=== PATIENT | male | born 1945 | race Caucasian/White ===

== ENCOUNTER 2016-09-02 11:43 | Outpatient (CLI) | payer MEDICARE, OTHER ==
[~2016-09-02 11:43] MED LIST: ASPI1TAB PO; ASPI81TA85 PO; BYST20TA2 PO; COLA100C PO; COUM1TAB17 PO; DOCU10CA PO; INFL10VL IV; LIPI80TA PO; META55.43 PO; METF500T4 PO; MIRA3350 PO; NS 1,000 ML IV SCH; ONETTES6 VI; PROT20TA11 PO; RAMAPRIL PO; diphenhydrAMINE 25 MG CAP PO SCH; inFLIXimab INJECTION 700 MG in NS 180 ML IV ONE
== END 2016-09-02 14:30 | disposition home or self-care (01) ==
LOC: M INFU 11:43
PROVIDERS: ATTEND Internal Medicine Gastroenterology
DX: K51.90 Ulcerative colitis, unspecified, without complications (principal)
CPT/HCPCS: 96413; 96415; J1745

== ENCOUNTER 2016-11-12 12:12 | Outpatient (CLI) | payer MEDICARE, OTHER | END 2016-11-12 14:45 | disposition home or self-care (01) | LOC: M INFU 12:12 | PROVIDERS: ATTEND Internal Medicine Gastroenterology | DX: K51.90 Ulcerative colitis, unspecified, without complications (principal); Z79.82 Long term (current) use of aspirin; Z79.899 Other long term (current) drug therapy; Z79.01 Long term (current) use of anticoagulants; Z88.2 Allergy status to sulfonamides | CPT/HCPCS: 96413; 96415; J1745 ==

== ENCOUNTER 2017-01-21 07:48 | Outpatient (CLI) | payer MEDICARE, OTHER ==
[~2017-01-21 07:48] MED LIST changes: -COLA100C PO; +COLA100C3 PO; -inFLIXimab INJECTION 700 MG in NS 180 ML IV ONE
[2017-01-21] MEDS ORDERED: inFLIXimab INJECTION 700 MG in NS 180 ML IV ONE (08:30)
== END 2017-01-21 10:30 | disposition home or self-care (01) ==
LOC: M INFU 07:48
PROVIDERS: ATTEND Internal Medicine Gastroenterology
DX: K51.90 Ulcerative colitis, unspecified, without complications (principal); Z87.891 Personal history of nicotine dependence; Z85.828 Personal history of other malignant neoplasm of skin; Z88.2 Allergy status to sulfonamides; Z79.82 Long term (current) use of aspirin; Z79.84 Long term (current) use of oral hypoglycemic drugs; Z79.01 Long term (current) use of anticoagulants; Z79.899 Other long term (current) drug therapy
CPT/HCPCS: 96413; 96415; J1745

== ENCOUNTER 2017-04-01 07:17 | Outpatient (CLI) | payer MEDICARE, OTHER ==
[~2017-04-01 07:17] MED LIST changes: -COLA100C3 PO; +COLA100C5 PO; +inFLIXimab INJECTION 700 MG in NS 180 ML IV ONE
== END 2017-04-01 10:20 | disposition home or self-care (01) ==
LOC: M INFU 07:17
PROVIDERS: ATTEND Internal Medicine Gastroenterology
DX: K51.90 Ulcerative colitis, unspecified, without complications (principal); Z85.828 Personal history of other malignant neoplasm of skin; Z88.2 Allergy status to sulfonamides; Z87.891 Personal history of nicotine dependence; Z79.01 Long term (current) use of anticoagulants; Z79.82 Long term (current) use of aspirin; Z79.899 Other long term (current) drug therapy
CPT/HCPCS: 96413; 96415; J1745

== ENCOUNTER 2017-08-24 08:43 | Outpatient (CLI) | payer MEDICARE, OTHER ==
[2017-08-24] MEDS: ACETAMINOPHEN TAB 650MG DOSE (2X325MG) PO (09:05)
[2017-08-24] MEDS: diphenhydrAMINE 25 MG CAP PO (09:08)
[2017-08-24] MEDS: INFLIXIMAB BIOSIMILAR 700 MG in NS 180 ML IV (09:09)
[2017-08-24] MEDS: NS 1,000 ML IV (09:09)
== END 2017-08-24 11:45 | disposition home or self-care (01) ==
LOC: M INFU 08:43
DX: K51.90 Ulcerative colitis, unspecified, without complications (principal); I10 Essential (primary) hypertension; E11.9 Type 2 diabetes mellitus without complications; Z79.82 Long term (current) use of aspirin; Z79.899 Other long term (current) drug therapy; Z88.2 Allergy status to sulfonamides; Z87.891 Personal history of nicotine dependence
CPT/HCPCS: 96413

== ENCOUNTER 2017-11-05 08:10 | Outpatient (CLI) | payer MEDICARE, OTHER ==
[2017-11-05] MEDS: diphenhydrAMINE 25 MG CAP PO (08:29)
[2017-11-05] MEDS: NS 1,000 ML IV (08:30)
[2017-11-05] MEDS: ACETAMINOPHEN TAB 650MG DOSE (2X325MG) PO (08:31)
[2017-11-05] MEDS: INFLIXIMAB BIOSIMILAR 700 MG in NS 180 ML IV (08:49)
== END 2017-11-05 11:15 | disposition home or self-care (01) ==
LOC: M INFU 08:10
DX: K51.90 Ulcerative colitis, unspecified, without complications (principal); I10 Essential (primary) hypertension; E11.9 Type 2 diabetes mellitus without complications; Z79.82 Long term (current) use of aspirin; Z79.84 Long term (current) use of oral hypoglycemic drugs; Z79.899 Other long term (current) drug therapy; Z79.01 Long term (current) use of anticoagulants; Z88.8 Allergy status to other drugs, medicaments and biological substances; Z87.891 Personal history of nicotine dependence
CPT/HCPCS: Q5102

== ENCOUNTER 2018-01-20 08:06 | Outpatient (CLI) | payer MEDICARE, OTHER ==
[2018-01-20] MEDS: FILTER 1.2 MICRON (ADULT TPN/MANNITOL/REMICADE) XX (08:00)
[~2018-01-20 08:06] MED LIST changes: -ASPI1TAB PO; -ASPI81TA85 PO; -BYST20TA2 PO; -COLA100C5 PO; -COUM1TAB17 PO; -DOCU10CA PO; -INFL10VL IV; -LIPI80TA PO; -META55.43 PO; -METF500T4 PO; -MIRA3350 PO; +NS 1,000 ML IV; -NS 1,000 ML IV SCH; -ONETTES6 VI; -PROT20TA11 PO; -RAMAPRIL PO; -diphenhydrAMINE 25 MG CAP PO SCH; -inFLIXimab INJECTION 700 MG in NS 180 ML IV ONE
[2018-01-20] MEDS: ACETAMINOPHEN TAB 650MG DOSE (2X325MG) PO (08:30)
[2018-01-20] MEDS: diphenhydrAMINE 25 MG CAP PO (08:32)
[2018-01-20] MEDS: INFLIXIMAB BIOSIMILAR 700 MG in NS 180 ML IV (08:45)
== END 2018-01-20 11:30 ==
LOC: M INFU 08:06
DX: K51.90 Ulcerative colitis, unspecified, without complications (principal); I10 Essential (primary) hypertension; E11.9 Type 2 diabetes mellitus without complications; Z79.01 Long term (current) use of anticoagulants; Z79.82 Long term (current) use of aspirin; Z79.899 Other long term (current) drug therapy; Z88.8 Allergy status to other drugs, medicaments and biological substances; Z87.891 Personal history of nicotine dependence
CPT/HCPCS: Q5103

== ENCOUNTER → 2018-03-24 | Outpatient (REF) | payer MEDICARE, OTHER ==
[2018-03-24 13:12] LABS: APPEARANCE, URINE CLEAR (CLEAR); BACTERIA, URINE AUTO NEGATIVE (NEGATIVE); BILIRUBIN, URINE AUTO NEGATIVE (NEGATIVE); BLOOD, URINE BLOOD NEGATIVE (NEGATIVE); COLOR, URINE YELLOW (YELLOW); GLUCOSE, URINE (UA) AUTO NEGATIVE (NEGATIVE); KETONE, URINE AUTO NEGATIVE (NEGATIVE); LEUKOCYTE ESTERASE, URINE AUTO NEGATIVE (NEGATIVE); NITRITE, URINE AUTO NEGATIVE (NEGATIVE); PROTEIN, URINE AUTO NEGATIVE (NEGATIVE); RBC, URINE AUTO 2 /HPF (0-3); SPECIFIC GRAVITY URINE AUTO 1.008 (1.002-1.035); SQUAMOUS EPITHELIAL CELL UR AU 0 /HPF (0-6); UROBILINOGEN, URINE AUTO 0.2 mg/dL (0.0-2.0); WBC, URINE AUTO 0 /HPF (0-3)
== END ==
LOC: M SMT 12:44
DX: R97.20 Elevated prostate specific antigen [PSA] (principal); Z79.899 Other long term (current) drug therapy
CPT/HCPCS: 81001

== ENCOUNTER → 2018-04-02 | Outpatient (CLI) | payer MEDICARE, OTHER | LOC: M SMT PRO 09:35 | DX: C61 Malignant neoplasm of prostate (principal); R97.20 Elevated prostate specific antigen [PSA] | CPT/HCPCS: G0416 ==

== ENCOUNTER → 2018-04-27 | Outpatient (CLI) | payer MEDICARE, OTHER | LOC: M ONCR 09:57 | DX: C61 Malignant neoplasm of prostate (principal) | CPT/HCPCS: G0463 ==

== ENCOUNTER → 2018-04-30 | Outpatient (CLI) | payer MEDICARE, OTHER ==
[~2018-04-30] MED LIST changes: +GASTROGRAFIN SOLUTION 30ML (Q9963) As Ordered; +ISOVUE-370 76% 100ML VIAL (Q9967) As Ordered; -NS 1,000 ML IV
[2018-04-30 09:46] LABS: HEMATOCRIT 48.2 % (42.0-52.0); HEMOGLOBIN 15.9 g/dl (13.5-17.5); MEAN CORPUSCULAR HEMOGLOBIN 31.8 pg (27.0-33.0); MEAN CORPUSCULAR VOLUME 96.4 fl (80.0-96.0); PLATELET COUNT, AUTOMATED 195 10^3/uL (150-450); RED CELL DISTRIBUTION WIDTH 13.1 % (11.5-14.5); WHITE BLOOD COUNT 6.9 10^3/uL (4.0-10.0)
[2018-04-30 10:03] LABS: GLOMERULAR FILTRATION RATE > 60.0 (>42)
[2018-04-30 10:03] LABS: BLOOD UREA NITROGEN 10 MG/DL (7-18)
== END ==
LOC: M RAD 09:20
DX: C61 Malignant neoplasm of prostate (principal)
CPT/HCPCS: Q9963

== ENCOUNTER → 2018-05-07 | Outpatient (CLI) | payer MEDICARE, OTHER | LOC: M SMT 08:55 | DX: C61 Malignant neoplasm of prostate (principal) | CPT/HCPCS: A4648 ==

== ENCOUNTER → 2018-06-16 | Outpatient (RCR) | payer MEDICARE, OTHER ==
--- NOTE | 2018-05-24 08:59 | RADONC ---
RADIATION ONCOLOGY SIMULATION NOTE DATE: 05/20/2018 Mr. Pelayo was taken to the CT scan for CT simulation of his prostate field. CT was accomplished without difficulty or discomfort. Radiation treatment planning is underway and radiation treatments will begin subsequently. An immobilization device was created and will be used throughout the course of treatment. It was created without difficulty or discomfort. I was physically present throughout the course of CT simulation.
--- NOTE | 2018-06-01 08:42 | RADONC ---
RADIATION ONCOLOGY PROGRESS NOTE DATE: 05/31/2018 CHART NUMBER: [id number] Mr. Pelayo is presently at a dose of 540 cGy to his prostate and is tolerating treatments quite well at this point with no complaints related to his radiation therapy. He is having no urinary or bowel difficulties. No bone pain. The patient's review of systems is noncontributory. Denies nausea, vomiting, fevers, chills, night sweats, diplopia, headaches, anxiety or depression, anorexia, weight loss, visual disturbances, chest pain, urinary or bowel difficulties, bone pain, or neurological problems. PHYSICAL EXAMINATION The patient's skin is in good condition with no evidence of radiation change present. There is no moist or dry desquamation. The remainder of his physical exam remains unchanged. Mr. Pelayo is tolerating treatments quite well and radiation will continue as scheduled.
--- NOTE | 2018-06-08 10:10 | RADONC ---
RADIATION ONCOLOGY PROGRESS NOTE DATE: 06/07/2018 CHART NUMBER: [id number] Mr. Pelayo is presently at a dose of 1440 cGy to his prostate and is tolerating treatments quite well at this point with no complaints related to his radiation therapy. He is having no urinary or bowel difficulties. No bone pain. The patient's review of systems is noncontributory. Denies nausea, vomiting, fevers, chills, night sweats, diplopia, headaches, anxiety or depression, anorexia, weight loss, visual disturbances, chest pain, urinary or bowel difficulties, bone pain, or neurological problems. PHYSICAL EXAMINATION: The patient's skin is in good condition with no evidence of her radiation change present. There is no moist or dry desquamation. The remainder of his physical exam remains unchanged. Mr. Pelayo is tolerating treatments quite well and radiation will continue as scheduled.
--- NOTE | 2018-06-15 11:07 | RADONC ---
RADIATION ONCOLOGY PROGRESS NOTE DATE: 06/14/2018 CHART NUMBER: [id number]. Mr. Pelayo is presently receiving local regional radiotherapy to his prostate for a diagnosis of adenocarcinoma. He has achieved a dose to date of 2340 cGy of an anticipated 7920 cGy and appears to be tolerating therapy well. REVIEW OF SYSTEMS: The patient specifically denies any nausea, vomiting, diarrhea, dysuria, hematuria or blood per rectum. He also denies night sweats, fevers, chills, diplopia, headaches, anxiety, or depression. Bone pain is denied. EXAMINATION FINDINGS: The skin within the irradiated volume shows no evidence of erythema and certainly no focal desquamation. The remainder of the physical examination is unchanged. IMPRESSION: Tolerating therapy well. PLAN: Treatments to continue.
[~2018-06-16] MED LIST changes: +ASPI1TAB PO; +ASPI81TA85 PO; +BYST20TA2 PO; +COLA100C5 PO; +COUM1TAB17 PO; +DOCU10CA PO; -GASTROGRAFIN SOLUTION 30ML (Q9963) As Ordered; +INFL10VL IV; -ISOVUE-370 76% 100ML VIAL (Q9967) As Ordered; +LIPI80TA PO; +META55.43 PO; +METF500T4 PO; +MIRA3350 PO; +ONETTES6 VI; +PROT20TA11 PO; +RAMAPRIL PO
== END ==
LOC: M ONCR 05-20 10:50
PROVIDERS: ATTEND Radiology Radiation Oncology
DX: C61 Malignant neoplasm of prostate (principal)

== ENCOUNTER 2018-06-17 11:19 | Outpatient (RCR) | payer MEDICARE, OTHER | END 2018-07-16 | LOC: M ONCR 06-18 11:15 | DX: C61 Malignant neoplasm of prostate (principal) | CPT/HCPCS: 77300 ==

== ENCOUNTER 2018-08-02 11:12 | Outpatient (RCR) | payer MEDICARE, OTHER ==
--- NOTE | 2018-07-27 11:40 | RADONC ---
RADIATION ONCOLOGY PROGRESS NOTE DATE: 07/26/2018 CHART #: [id number] Mr. Pelayo is presently at a dose of 7020 cGy to his prostate and is tolerating treatments quite well at this point with no significant difficulties related to his radiation therapy other than some mild discomfort upon urination and loose bowel movements. REVIEW OF SYSTEMS: The patient's review of systems is positive for some occasional loose bowel movements but is otherwise noncontributory. Denies nausea, vomiting, fevers, chills, night sweats, diplopia, headaches, anxiety or depression, anorexia, weight loss, visual disturbances, chest pain, urinary or bowel difficulties, bone pain, or neurological problems. PHYSICAL EXAMINATION: The patient's skin is in good condition with no evidence of moist or dry desquamation. The remainder of his physical exam remains unchanged. Mr. Pelayo is tolerating treatments quite well and radiation will continue as scheduled.
--- NOTE | 2018-08-02 15:52 | RADONC ---
RADIATION ONCOLOGY TREATMENT SUMMARY DATE: 08/02/2018 CHART NUMBER: [id number] DIAGNOSIS: Prostate cancer. STAGE: II B, [id number], [place] score 7 (3-4), grade group II, PSA 7.55. ECOG PERFORMANCE STATUS: Zero. TREATMENT SUMMARY: Mr. Pelayo is a very pleasant, 72-year-old white male with the diagnosis of a stage II B, [id number], moderate to poorly differentiated Livan score 7 (3-4) adenocarcinoma of the prostate with a PSA level of 7.55 who presented to us for consideration of definitive external beam radiation therapy with IMRT/IGRT. We treated the patient to his prostate for a total dose of 7920 cGy delivered in 44 fractions of 180 cGy each over 67 elapsed days from 05/27/2018 through 08/02/2018. The patient's prostate was treated on a linear accelerator utilizing a 6 MV photon beam via IMRT/IGRT. We initially treated the prostate and seminal vesicles to a dose of 5400 cGy in 30 fractions of 180 cGy each and subsequently coned down to the prostate itself to deliver another 2527 cGy once again bringing the prostate to a total dose of 7920 cGy. Mr. Pelayo tolerated his treatments quite well and was able to complete therapy as prescribed without interruption. I have scheduled the patient to see me again in 1 month for further followup. He will also continue to be followed by his other physicians as well. cc: MD Jeffrey Philip MD
== END 2018-08-16 ==
LOC: M ONCR 11:12
PROVIDERS: ATTEND Radiology Radiation Oncology
DX: C61 Malignant neoplasm of prostate (principal)

== ENCOUNTER → 2018-08-12 | Outpatient (CLI) | payer MEDICARE, OTHER | LOC: M SMT 13:15 | PROVIDERS: ATTEND Nurse Practitioner Women's Health | DX: C61 Malignant neoplasm of prostate (principal) | CPT/HCPCS: 36415; 84153; G0463 ==

== ENCOUNTER → 2018-08-27 | Outpatient (CLI) | payer MEDICARE, OTHER | LOC: M LAB 10:58 | PROVIDERS: ATTEND Radiology Radiation Oncology | DX: C61 Malignant neoplasm of prostate (principal) ==

== ENCOUNTER → 2018-09-01 | Outpatient (CLI) | payer MEDICARE, OTHER ==
--- NOTE | 2018-09-02 11:23 | RADONC ---
RADIATION ONCOLOGY FOLLOWUP NOTE DATE: 09/01/2018 CHART #: [id number] DIAGNOSIS: Prostate cancer. STAGE: II B, [id number], Livan score 7 (3-4), grade group II, PSA 7.55. ECOG PERFORMANCE STATUS: 0. FOLLOWUP NOTE: Mr. Pelayo is a very pleasant 72-year-old white male with the diagnosis of a stage II B, [id number], moderate to poorly differentiated Mckinney score 7 (3-4) adenocarcinoma of prostate with a PSA level initially of 7.55 who is presenting to us today for routine followup visit 1 month post completion of external beam radiation therapy. The patient presents today reporting that he is doing quite well with no complaints at this time related to his radiation therapy or disease. He has no urinary or bowel difficulties and no bone pain. REVIEW OF SYSTEMS: The patient's review of systems is noncontributory. Denies nausea, vomiting, fevers, chills, night sweats, diplopia, headaches, anxiety or depression, anorexia, weight loss, visual disturbances, chest pain, urinary or bowel difficulties, bone pain, or neurological problems. PHYSICAL EXAMINATION: The patient is a well-developed, well-nourished male in no acute distress. HEENT exam is normocephalic, atraumatic. Extraocular movements are intact. There is no palpable cervical, supraclavicular, infraclavicular, axillary, or inguinal lymphadenopathy present. Lungs are clear to auscultation and percussion. Heart has a regular rate and rhythm. Abdomen is benign with no hepatosplenomegaly, masses, or tenderness. Rectal examination reveals a normal anal sphincter tone. His prostate is smooth with no evidence of nodularity. Skeletal examination reveals no tenderness to pressure or percussion of the bony skeleton. Extremities reveal no clubbing, cyanosis, or edema. Neurologic exam is grossly intact, as is the remainder of the physical examination. ASSESSMENT: The patient is clinically JUAN at this time and will be seen by us again in 6 months for further followup. He will also continue be followed by his other physicians as well. His PSA has already dropped from 7.55 to 5.5 in 4 weeks. cc: MD Jeffrey Philip MD
== END ==
LOC: M ONCR 11:18
PROVIDERS: ATTEND Radiology Radiation Oncology
DX: C61 Malignant neoplasm of prostate (principal)

== ENCOUNTER → 2018-09-09 | Outpatient (CLI) | payer MEDICARE, OTHER | LOC: M SMT 10:16 | PROVIDERS: ATTEND Nurse Practitioner Women's Health | DX: C61 Malignant neoplasm of prostate (principal) ==

== ENCOUNTER → 2018-11-10 | Outpatient (CLI) | payer MEDICARE, OTHER | LOC: M SMT 13:54 | PROVIDERS: ATTEND Nurse Practitioner Women's Health | DX: C61 Malignant neoplasm of prostate (principal) ==

== ENCOUNTER → 2019-01-11 | Outpatient (CLI) | payer MEDICARE, OTHER ==
[~2019-01-11] MED LIST changes: -ASPI1TAB PO; +ASPI81TA26 PO
== END ==
LOC: M SMT 10:11
PROVIDERS: ATTEND Urology
DX: C61 Malignant neoplasm of prostate (principal)

== ENCOUNTER → 2019-02-22 | Outpatient (CLI) | payer MEDICARE, OTHER | LOC: M SMT 09:26 | PROVIDERS: ATTEND Urology | DX: C61 Malignant neoplasm of prostate (principal) ==

== ENCOUNTER 2021-04-01 14:08 | Observation (INO) | payer MEDICARE, OTHER ==
[~2021-04-01] VITALS: Ht 182.9 cm; Wt 76.5 kg
[~2021-04-01 14:08] MED LIST changes: -ASPI81TA85 PO; +ASPI81TA86 PO; +METF-838 PO; -METF500T4 PO; +PANT20TA6 PO
[2021-04-01] MEDS ORDERED: ATORVASTATIN 20 MG TAB PO SCH (15:00)
[2021-04-01] MEDS ORDERED: ramipriL 1.25 MG CAP PO SCH (15:00)
[2021-04-01 15:43] LABS: BASO % 0.4 % (0.0-1.0); EOS % 0.2 % (0.0-3.0); HEMATOCRIT 45.7 % (42.0-52.0); HEMOGLOBIN 15.4 g/dl (13.5-17.5); LYMPH # 0.9 10^3/uL (1.5-5.0); LYMPH % 10.2 % (24.0-44.0); MEAN CORPUSCULAR HEMOGLOBIN 31.4 pg (27.0-33.0); MEAN CORPUSCULAR HGB CONC 33.7 g/dl (32.0-36.5); MEAN CORPUSCULAR VOLUME 93.3 fl (80.0-96.0); MONO # 0.6 10^3/uL (0.0-0.8); NEUTROPHILS # 7.3 10^3/uL (1.5-8.5); NEUTROPHILS % 81.9 % (36.0-66.0); PLATELET COUNT, AUTOMATED 190 10^3/uL (150-450); WHITE BLOOD COUNT 8.9 10^3/uL (4.0-10.0)
[2021-04-01 15:54] LABS: INR 2.73; PROTHROMBIN TIME 29.2 SECONDS (12.7-14.5)
[2021-04-01 16:06] LABS: ALBUMIN 3.8 GM/DL (3.2-5.2); ALT/SGPT 41 U/L (12-78); BILIRUBIN,DIRECT 0.1 MG/DL (0.0-0.2); BILIRUBIN,TOTAL 0.3 MG/DL (0.2-1.0); BLOOD UREA NITROGEN 13 MG/DL (7-18); CALCIUM LEVEL 8.4 MG/DL (8.8-10.2); CARBON DIOXIDE LEVEL 25 MEQ/L (21-32); CHLORIDE LEVEL 103 MEQ/L (98-107); CREATININE FOR GFR 0.94 MG/DL (0.70-1.30); GLOMERULAR FILTRATION RATE > 60.0 (>42); GLUCOSE, FASTING 155 MG/DL (70-100); LIPASE 187 U/L (73-393); POTASSIUM SERUM 5.1 MEQ/L (3.5-5.1); SODIUM LEVEL 134 MEQ/L (136-145)
[2021-04-01 16:11] LABS: RSV AMPLIFICATION NEGATIVE (NEGATIVE)
[2021-04-01] MEDS: NS 1,000 ML IV SCH (17:30)
[2021-04-01] MEDS ORDERED: WARF-23 PO (17:43)
[2021-04-01] MEDS ORDERED: RAMI1CAP22 PO (17:43)
[2021-04-01] MEDS ORDERED: HOME MED LIST COMPLETE! XX SCH (17:45)
[2021-04-01] MEDS ORDERED: GLUCAGON INJ 1MG VIAL SC PRN (17:55)
[2021-04-01] MEDS ORDERED: GLUCOSE 4GM CHEW TABLET PO PRN (17:55)
[2021-04-01] MEDS ORDERED: DEXTROSE 50% 50 ML SYRINGE IV PRN (17:55)
--- NOTE | 2021-04-01 17:59 | HPEPDOC ---
General Date of Admission April 01, 2021 Date of Service: Apr 01, 2021 Chief Complaint The patient is a 75-year-old male admitted with a reason for visit of Rectal Bleeding. Source: Patient History of Present Illness Mr. Pelayo is a 75-year-old male with factor V Leiden chronically on Coumadin and history of ulcerative colitis who presents with bright red blood per rectum. The last time he had bright red blood blood per rectum was about 20 years ago when he was first diagnosed with ulcerative colitis. He saw GI, Dr. Levi, who had him on Remicade. Patient has not had an episode since then. Patient elected to discontinue Remicade about 3 years ago. It was also about 20 years ago when he found out he had factor V Leyden and has been on warfarin since then. Patient tells me that he has chronic constipation and has bowel movements once daily or once every other day. He had a bowel movement at 11 AM which was normal. He suddenly felt that he had to have another bowel movement at 12 PM. Denies any abdominal pain or nausea. When patient had that bowel movement, the toilet bowl was bright red blood. Patient came to the ED for evaluation. ED provider performed rectal exam. It was grossly positive for blood. There were external hemorrhoids but not thrombosed. ED provider was able to feel hard stool in the rectal vault. Patient may have had a traumatic bowel movement. Patient did tell me that he had to strain at 12 PM to have a bowel movement. While here patient's blood pressure has remained stable and his hemoglobin was at baseline had 15.4. He denies any lightheadedness or dizziness, shortness of breath, chest pain, or abdominal pain. Otherwise, patient tells me that his last colonoscopy was 3 years ago. He tells me that the did not find anything. Looking back on the chart, last documented colonoscopy was in 2016. There was a nonbleeding internal hemorrhoids and diverticulosis in the rectosigmoid colon, sigmoid colon, and descending colon. Patient will be placed in observation to monitor rectal bleeding and H&H Home Medications Scheduled Aspirin (Aspirin EC) 81 Mg Tab, 81 MG PO weekly, (Reported) Atorvastatin Calcium (Lipitor) 80 Mg Tab, 80 MG PO DAILY, (Reported) Docusate Sodium (Colace) 100 Mg Cap, 400 MG PO DAILY, (Reported) Metformin HCl (Metformin HCl ER) 500 Mg Tab, 500 MG PO DAILY, (Reported) Nebivolol HCl (Bystolic) 20 Mg Tab, 20 MG PO DAILY, (Reported) Pantoprazole Sodium (Pantoprazole Sodium) 20 Mg Tablet.dr, 20 MG PO DAILY, (Reported) Psyllium Husk/Aspartame (Metamucil Sugar Free Powder) 55.46 % Pow, 1 PKT PO DAILY, (Reported) Warfarin Sodium (Coumadin) 5 Mg Tab, 5 MG PO DAILY, (Reported) [Ramapril] , 2.5 MG PO DAILY, (Reported) Miscellaneous Medications Blood Sugar Diagnostic ([employer] Ultra Blue Test Strp) 1 Moon Moon, 1 MOON , (Reported) Allergies Coded Allergies: Sulfa (Sulfonamide Antibiotics) (Verified Allergy, Unknown, 12/15/18) Past Medical History Medical History 1. Hyperlipidemia 2. DM type 2 3. HTN 4. Hx ulcerative colitis 5. Factor V Leiden mutation 6. Hx DVT 7. Elevated PSA Surgical History 1. Skin cancer removed from back, face, nose, chest multiple 2. Trus Bx 04/02/18 3. Fiducial marker placement 05/07/2018 4. Radiation treatment Family History Father: Mother: , history of Alzheimer's dementia Social History * Smoker: former Smoker Alcohol: other (drinks 2 beers a day) Drugs: denies A-FIB/CHADSVASC A-FIB History Current/History of A-Fib/PAF?: No Review of Systems Constitutional: Denies: Chills, Fever Eyes: Denies: Vision change ENT: Denies: Sore Throat Skin: Reports: Rash (On left arm since November when he had COVID vaccination) Pulmonary: Denies: Dyspnea, Cough Cardiovascular: Denies: Chest Pain, Lt Headedness Gastrointestinal: Reports: Hematochezia, Other Symptoms (Decreased appetite); Denies: Nausea, Abdominal Pain Genitourinary: Denies: Dysuria, Hematuria Hematologic: Denies: Bruising Neurological: Denies: Numbness Psych: Denies: Anxiety, Depression Physical Examination General Exam: Positive: Alert, Cooperative Eye Exam: Positive: EOMI; Negative: Sclera icteric ENT Exam: Positive: Atraumatic Neck Exam: Positive: Supple Chest Exam: Positive: Clear to auscultation; Negative: Rales, Rhonchi, Wheezing Heart Exam: Positive: Rate Normal, Regular Rhythm Abdomen Exam: Positive: Normal bowel sounds, Other (mildly tympanic); Negative: Tenderness Extremity Exam: Positive: Edema (Very mild pitting edema) Skin Exam: Positive: Rash (red and bumpy rash of left arm) Neuro Exam: Positive: Normal Speech, Cranial Nerves 3-12 NL Psych Exam: Positive: Mental status NL, Mood NL Vital Signs Vital Signs Date Time Temp Pulse Resp B/P (MAP) Pulse Ox O2 Delivery O2 Flow Rate FiO2 04/01/21 14:09 97.8 64 20 189/79 (115) 97 Room Air Laboratory Data Labs 24H Laboratory Tests 2 04/01/21 15:23: Immature Granulocyte % (Auto) 0.3, Neutrophils (%) (Auto) 81.9H, Lymphocytes (%) (Auto) 10.2L, Monocytes (%) (Auto) 7.0, Eosinophils (%) (Auto) 0.2, Basophils (%) (Auto) 0.4, Neutrophils # (Auto) 7.3, Lymphocytes # (Auto) 0.9L, Monocytes # (Auto) 0.6, Eosinophils # (Auto) 0.0, Basophils # (Auto) 0.0, Nucleated Red Blood Cells % (auto) 0.0, Prothrombin Time 29.2H, Prothromb Time International Ratio 2.73, Anion Gap 6L, Glomerular Filtration Rate > 60.0, Calcium Level 8.4L, Total Bilirubin 0.3, Direct Bilirubin 0.1, Aspartate Amino Transf (AST/SGOT) 29, Alanine Aminotransferase (ALT/SGPT) 41, Alkaline Phosphatase 66, Total Protein 7.0, Albumin 3.8, Albumin/Globulin Ratio 1.2, Lipase 187, Coronavirus (COVID-19)(PCR) NEGATIVE, Influenza Type A (RT-PCR) NEGATIVE, Influenza Type B (RT-PCR) NEGATIVE, Respiratory Syncytial Virus (PCR) NEGATIVE CBC/BMP Laboratory Tests 04/01/21 15:23 Assessment/Plan Mr. Pelayo is a 75-year-old male with factor V Leiden chronically on Coumadin and history of ulcerative colitis who presents with bright red blood per rectum. Patient does have history of ulcerative colitis. He had stop Remicade 3 years ago, but he has not had a flare. We will order a CT abdomen pelvis, ESR, and CRP. Otherwise patient may have had a traumatic bowel movement and caused hem orrhoid bleeding. Other differential includes diverticular bleeding. Will hold warfarin and monitor H&H every 6 hours. We will recheck INR in the morning Plan / VTE VTE Prophylaxis Ordered?: Yes Plan Plan 1. Bright red blood per rectum Differential includes ulcerative colitis flare versus traumatic bowel movement with bleeding hemorrhoids versus diverticular bleed Hold warfarin and aspirin Monitor H&H every 6 hours Check ESR and CRP Clear liquid diet 2. Factor V Leiden Due to bleeding will hold warfarin for today Monitor INR levels 3. Diabetes mellitus type 2 Hold Metformin Sliding scale insulin and hypoglycemia protocol 4. Hypertension Continue Bystolic and Altace with hold parameters if systolic blood pressure less than 120. Higher hold parameters due to blood loss 5. Hyperlipidemia Continue atorvastatin 6. GERD Continue pantoprazole 7. DVT prophylaxis SCDs and teds Disposition: Pending stability of H&H and if hematochezia persists JANET ROSARIO DO Apr 01, 2021 17:03
[2021-04-01] MEDS: GASTROGRAFIN SOLUTION 30ML PO SCH ×2 (18:09→18:52)
[2021-04-01] MEDS ORDERED: ISOVUE-370 76% 100ML VIAL As Ordered ONE (19:39)
--- NOTE | 2021-04-01 20:27 | REPVR ---
PROCEDURE INFORMATION: Exam: CT Abdomen And Pelvis With Contrast Exam date and time: 04/01/2021 8:02 PM Age: 75 years old Clinical indication: Abdominal pain; Additional info: Evaluation for colitis TECHNIQUE: Imaging protocol: Computed tomography of the abdomen and pelvis with contrast. Radiation optimization: All CT scans at this facility use at least one of these dose optimization techniques: automated exposure control; mA and/or kV adjustment per patient size (includes targeted exams where dose is matched to clinical indication); or iterative reconstruction. Contrast material: ISOVUE 370; Contrast volume: 100 ml; Contrast route: INTRAVENOUS (IV); COMPARISON: CT PEL W/IV PO CONTRAST 04/30/2018 11:03 AM FINDINGS: Liver: There is a diffuse decrease in hepatic parenchymal density, consistent with steatosis. Gallbladder and bile ducts: Normal. No calcified stones. No ductal dilation. Pancreas: Normal. No ductal dilation. Spleen: Normal. No splenomegaly. Adrenal glands: Normal. No mass. Kidneys and ureters: Normal. No hydronephrosis. Stomach and bowel: There is increased feces throughout the colon consistent with constipation. Short segment of luminal narrowing in the mid sigmoid colon with subtle pericolonic inflammatory changes. Unclear if this represents a short segment of colitis versus a fixed lesion such as neoplasm. Notably, the findings not substantially changed in comparison to the prior examination. Appendix: No evidence of appendicitis. Intraperitoneal space: Unremarkable. No free air. No significant fluid collection. Vasculature: The aortoiliac vessels demonstrate mild atherosclerotic calcification. Lymph nodes: Unremarkable. No enlarged lymph nodes. Urinary bladder: Unremarkable as visualized. Reproductive: Fiducials demonstrated in the prostate gland. Bones/joints: Moderate central spinal stenosis L3-L4, moderate to severe central spinal stenosis L4-L5. Soft tissues: Unremarkable. IMPRESSION: 1. There is a diffuse decrease in hepatic parenchymal density, consistent with steatosis. 2. There is increased feces throughout the colon consistent with constipation. 3. Short segment of luminal narrowing in the mid sigmoid colon with subtle pericolonic inflammatory changes. Unclear if this represents a short segment of colitis versus a fixed lesion such as neoplasm. Notably, the findings not substantially changed in comparison to the prior examination. Electronically signed by: Shubham Sykes On 04/01/2021 20:27:31 PM
[2021-04-01] MEDS ORDERED: HumaLOG INSULIN (NovoLOG) PER UNIT SC SCH (21:00)
[2021-04-01 21:45] VITALS: BP 165/82
[2021-04-01 23:09] LABS: HEMATOCRIT 41.7 % (42.0-52.0); HEMOGLOBIN 14.4 g/dl (13.5-17.5); MEAN CORPUSCULAR HEMOGLOBIN 31.9 pg (27.0-33.0); MEAN CORPUSCULAR HGB CONC 34.5 g/dl (32.0-36.5); MEAN CORPUSCULAR VOLUME 92.3 fl (80.0-96.0); PLATELET COUNT, AUTOMATED 168 10^3/uL (150-450); RED BLOOD COUNT 4.52 10^6/uL (4.30-6.10); WHITE BLOOD COUNT 7.8 10^3/uL (4.0-10.0)
[2021-04-01 23:28] LABS: ERYTHROCYTE SEDIMENTATION RATE 4 mm/hr (0-20)
[2021-04-02] MEDS: NS 1,000 ML IV SCH (04:53)
[2021-04-02 05:43] LABS: HEMATOCRIT 44.5 % (42.0-52.0); HEMOGLOBIN 14.9 g/dl (13.5-17.5); MEAN CORPUSCULAR HEMOGLOBIN 31.2 pg (27.0-33.0); MEAN CORPUSCULAR HGB CONC 33.5 g/dl (32.0-36.5); MEAN CORPUSCULAR VOLUME 93.1 fl (80.0-96.0); PLATELET COUNT, AUTOMATED 169 10^3/uL (150-450); RED BLOOD COUNT 4.78 10^6/uL (4.30-6.10); WHITE BLOOD COUNT 7.9 10^3/uL (4.0-10.0)
[2021-04-02 05:55] LABS: INR 2.16; PROTHROMBIN TIME 24.5 SECONDS (12.7-14.5)
[2021-04-02 06:00] VITALS: BP 153/70
[2021-04-02 06:20] LABS: BLOOD UREA NITROGEN 9 MG/DL (7-18); CALCIUM LEVEL 8.5 MG/DL (8.8-10.2); CARBON DIOXIDE LEVEL 28 MEQ/L (21-32); CHLORIDE LEVEL 107 MEQ/L (98-107); CREATININE FOR GFR 0.78 MG/DL (0.70-1.30); GLOMERULAR FILTRATION RATE > 60.0 (>42); GLUCOSE, FASTING 119 MG/DL (70-100); POTASSIUM SERUM 4.6 MEQ/L (3.5-5.1); SODIUM LEVEL 137 MEQ/L (136-145)
[2021-04-02] MEDS ORDERED: HumaLOG INSULIN (NovoLOG) PER UNIT SC SCH (07:30)
[2021-04-02] MEDS ORDERED: COLA100C5 PO (08:13)
[2021-04-02] MEDS ORDERED: PANTOPRAZOLE 20 MG TAB PO SCH (09:00)
[2021-04-02] MEDS ORDERED: NEBIVOLOL 5 MG TAB (BYSTOLIC) PO SCH (09:00)
[2021-04-02] MEDS ORDERED: DOCUSATE SODIUM 100MG CAPSULE PO SCH (09:00)
[2021-04-02 09:46] VITALS: BP 156/74
--- NOTE | 2021-04-02 16:56 | DS.PDOC ---
Discharge Summary General Date of Admission Apr 01, 2021 at 17:27 Date of Discharge Apr 02, 2021 Discharge Summary PROCEDURES PERFORMED DURING STAY: None ADMITTING DIAGNOSES: 1. Bright red blood per rectum 2. Factor V Leiden 3. DM type 2 4. Hypertension 5. Hyperlipidemia 6. GERD DISCHARGE DIAGNOSES: 1. Bright red blood per rectum 2. Factor V Leiden 3. DM type 2 4. Hypertension 5. Hyperlipidemia 6. GERD COMPLICATIONS/CHIEF COMPLAINT: Brbpr (Bright Red Blood Per Rectum). HISTORY OF PRESENT ILLNESS: Mr. Pelayo is a 75-year-old male with factor V Leiden chronically on Coumadin and history of ulcerative colitis who presents with bright red blood per rectum. The last time he had bright red blood blood per rectum was about 20 years ago when he was first diagnosed with ulcerative colitis. He saw GI, Dr. Levi, who had him on Remicade. Patient has not had an episode since then. Patient elected to discontinue Remicade about 3 years ago. It was also about 20 years ago when he found out he had factor V Leyden and has been on warfarin since then. Patient tells me that he has chronic constipation and has bowel movements once daily or once every other day. He had a bowel movement at 11 AM which was normal. He suddenly felt that he had to have another bowel movement at 12 PM. Denies any abdominal pain or nausea. When patient had that bowel movement, the toilet bowl was bright red blood. Patient came to the ED for evaluation. ED provider performed rectal exam. It was grossly positive for blood. There were external hemorrhoids but not thrombosed. ED provider was able to feel hard stool in the rectal vault. Patient may have had a traumatic bowel movement. Patient did tell me that he had to strain at 12 PM to have a bowel movement. While here patient's blood pressure has remained stable and his hemoglobin was at baseline had 15.4. He denies any lightheadedness or dizziness, shortness of breath, chest pain, or abdominal pain. Otherwise, patient tells me that his last colonoscopy was 3 years ago. He tells me that the did not find anything. Looking back on the chart, last documented colonoscopy was in 2015. There was a nonbleeding internal hemorrhoids and di verticulosis in the rectosigmoid colon, sigmoid colon, and descending colon. Patient will be placed in observation to monitor rectal bleeding and H&H HOSPITAL COURSE: CT abd/pelvis demonstrated constipation. There was a short segment of luminal narrowing int he mid sigmoid colon with pericolonic i nflammatory changes. It appears similar to prior imaging. ESR and CRP were not elevated. Overnight, patient did well. He had two bowel movements. The second one released a lot of stool. There was still bright red blood per rectum, but not as much as on admission. Patient's 6 hour hemoglobins have been stable. He went from 15.4 to 14.4 to 14.9. Patient denies any lightheadedness/dizziness, chest pain, dyspnea, or abdominal pain. I discussed signs of anemia such as lightheadedness/dizziness, chest pain, dyspnea, or fatigue. If he were to feels any of these, I told him to reach out to his PCP or go to the nearest ER Today, patient felt well and felt ready for home. I recommended Colace to soften his stool. He may have had a hard BM which lacerated a hemorrhoid or internal wall of rectum. Patient was discharged home today. DISCHARGE MEDICATIONS: Please see below. ALLERGIES: Please see below. PHYSICAL EXAMINATION ON DISCHARGE: VITAL SIGNS: Please see below. GENERAL: Comfortable, in no apparent distress. HEENT: Head normocephalic/atraumatic, EOMI, sclera clear. NECK: Supple. RESPIRATORY: Lungs clear to auscultation bilaterally, no rales, wheeze or rhonchi. CARDIOVASCULAR: Regular rate and rhythm. ABDOMEN: Soft, nontender, no guarding or rebound tenderness. Normal bowel sounds. MUSCLE SKELETAL: Muscle strength 5/5 in all extremities. NEUROLOGICAL: CN 3-12 grossly intact, no focal deficits noted. PSYCHOLOGICAL: Normal mood and affect LABORATORY DATA: Please see below. IMAGING: Radiologist interpretation CT abd/pelvis with IV and PO contrast 1. There is a diffuse decrease in hepatic parenchymal density, consistent with steatosis. 2. There is increased feces throughout the colon consistent with constipation. 3. Short segment of luminal narrowing in the mid sigmoid colon with subtle pericolonic inflammatory changes. Unclear if this represents a short segment of colitis versus a fixed lesion such as neoplasm. Notably, the findings not substantially changed in comparison to the prior examination. PROGNOSIS: Good ACTIVITY: As tolerated. DIET: Carbohydrate consistent diet DISCHARGE PLAN: Home DISPOSITION: , Self-Care. DISCHARGE INSTRUCTIONS: 1. Follow-up with your PCP in 1 week. 2. Recommend follow-up with your GI provider in 1 week ITEMS TO FOLLOWUP ON ON OUTPATIENT: 1. H&H 2. GI consultation for luminal narrowing of the mid sigmoid colon seen on CT abdomen pelvis DISCHARGE CONDITION: Stable Total time spent on discharge planning, discharge summary, medication reconciliation: 25 minutes Vital Signs/I&Os Vital Signs Date Time Temp Pulse Resp B/P (MAP) Pulse Ox O2 Delivery O2 Flow Rate FiO2 04/02/21 09:46 80 156/74 04/02/21 06:00 97.7 16 95 Room Air I&O- Last 24 Hours up to 6 AM 04/02/21 06:00 Intake Total 1110 ml Output Total 1100 ml Balance 10 ml Laboratory Data Labs 24H Laboratory Tests 2 04/01/21 22:03: Bedside Glucose (Misc Panel) 150H 04/01/21 22:58: Nucleated Red Blood Cells % (auto) 0.0, Erythrocyte Sedimentation Rate 4, C- Reactive Protein, Quantitative < 0.30 04/02/21 05:30: Prothrombin Time 24.5H, Prothromb Time International Ratio 2.16, Anion Gap 2L, Glomerular Filtration Rate > 60.0, Calcium Level 8.5L 04/02/21 05:31: Nucleated Red Blood Cells % (auto) 0.0 04/02/21 11:46: Bedside Glucose (Misc Panel) 171H CBC/BMP Laboratory Tests 04/01/21 22:58 04/02/21 05:30 04/02/21 05:31 FSBS Laboratory Tests Test 04/01/21 22:03 04/02/21 11:46 Range/Units Bedside Glucose (Misc Panel) 150 171 83-110 MG/DL Discharge Medications Scheduled Aspirin (Aspirin EC) 81 Mg Tab, 81 MG PO 1XWK, (Reported) WEDNESDAYS Atorvastatin Calcium (Lipitor) 80 Mg Tab, 80 MG PO DAILY, (Reported) @ 1500 Docusate Sodium (Colace) 100 Mg Capsule, 100 MG PO BID Metformin HCl (Metformin HCl ER) 500 Mg Tab, 500 MG PO BID, (Reported) Nebivolol HCl (Bystolic) 20 Mg Tab, 20 MG PO DAILY, (Reported) Pantoprazole Sodium (Pantoprazole Sodium) 20 Mg Tablet.dr, 20 MG PO DAILY, (Reported) Ramipril (Ramipril) 2.5 Mg Capsule, 2.5 MG PO DAILY, (Reported) @ 1500 Warfarin Sodium (Warfarin Sodium) 5 Mg Tablet, 5 MG PO 6XWK, (Reported) MON, , WED, , THU, SAT Allergies Coded Allergies: Sulfa (Sulfonamide Antibiotics) (Verified Allergy, Unknown, 12/15/18) JANET ROSARIO DO Apr 02, 2021 16:56
== END 2021-04-02 11:52 | disposition home or self-care (01) ==
LOC: M ED 14:08 → M ED INP 17:27 → M MSPAV 21:45
PROVIDERS: ADMIT Internal Medicine; ATTEND Internal Medicine
DX: K62.5 Hemorrhage of anus and rectum (principal); D68.51 Activated protein C resistance; E11.9 Type 2 diabetes mellitus without complications; I10 Essential (primary) hypertension; E78.49 Other hyperlipidemia; K21.9 Gastro-esophageal reflux disease without esophagitis; Z79.01 Long term (current) use of anticoagulants; Z79.82 Long term (current) use of aspirin; Z79.899 Other long term (current) drug therapy; Z88.2 Allergy status to sulfonamides
CPT/HCPCS: 36415; 74177; 80048; 80076; 83690; 85025; 85027; 85610; 85652; 86140; 86850; 86900; 86901; 87631; 93041; 96360; 96361; 99285; G0378; Q9963; Q9967

== ENCOUNTER → 2022-12-29 | Outpatient (CLI) | payer MEDICARE ==
[~2022-12-29] MED LIST changes: +RAMI1CAP22 PO; +WARF-23 PO
== END ==
LOC: M PLAIMG 12:52
PROVIDERS: ATTEND Family Medicine
DX: G30.0 Alzheimer's disease with early onset (principal); R90.82 White matter disease, unspecified; G31.9 Degenerative disease of nervous system, unspecified